=== PATIENT | male | born 1970 | race Caucasian/White ===

== ENCOUNTER 2023-06-14 14:40 | Outpatient (CLI) | payer BC ==
[2023-06-14] MEDS ORDERED: APIX5TAB3 PO (16:11)
== END 2023-06-14 23:59 | disposition home or self-care (01) ==
LOC: VAS 14:40
PROVIDERS: ATTEND Podiatrist Foot & Ankle Surgery
DX: S82.899A Other fracture of unspecified lower leg, initial encounter for closed fracture (principal); S82.409A Unspecified fracture of shaft of unspecified fibula, initial encounter for closed fracture; I87.2 Venous insufficiency (chronic) (peripheral); M79.672 Pain in left foot; M25.472 Effusion, left ankle; X58.XXXA Exposure to other specified factors, initial encounter; Y93.89 Activity, other specified; Y92.89 Other specified places as the place of occurrence of the external cause; Y99.8 Other external cause status
CPT/HCPCS: 93971

== ENCOUNTER 2023-06-14 15:33 | Emergency (ER) | payer BC ==
[~2023-06-14] VITALS: Ht 175.3 cm; Wt 81.9 kg
[2023-06-14] MEDS ORDERED: APIX5TAB3 PO (16:11)
[2023-06-14 16:20] VITALS: BP 125/85; PULSE 66; RESP 16; O2SAT 99
[2023-06-14] MEDS: apixaban 5mg tablet PO ONE (16:26)
[2023-06-14 16:30] VITALS: TEMP 98.1
== END 2023-06-14 16:32 | disposition home or self-care (01) ==
LOC: ER 15:35
DX: I82.492 Acute embolism and thrombosis of other specified deep vein of left lower extremity (principal)
CPT/HCPCS: 99284